=== PATIENT | female | born 1985 | race Two or more races ===

== ENCOUNTER → 2017-05-08 | Outpatient (REF) | payer OTHER | LOC: M SFHCLERA 17:58 | PROVIDERS: ATTEND Nurse Practitioner Family | DX: J02.9 Acute pharyngitis, unspecified (principal) ==

== ENCOUNTER → 2018-03-13 | Outpatient (REF) | payer OTHER | LOC: M SFHCLERA 20:08 | DX: N89.8 Other specified noninflammatory disorders of vagina (principal) | CPT/HCPCS: 87086 ==

== ENCOUNTER → 2018-05-06 | Outpatient (REF) | payer OTHER ==
[2018-05-06 18:04] LABS: CHLAMYDIA DNA AMPLIFICATION NEGATIVE (NEGATIVE); GC DNA AMPLIFICATION NEGATIVE (NEGATIVE)
== END ==
LOC: M SFHCLERA 10:34
DX: N89.8 Other specified noninflammatory disorders of vagina (principal)
CPT/HCPCS: 87186

== ENCOUNTER → 2018-07-26 | Outpatient (REF) | payer OTHER | LOC: M SFHCLERA 09:28 | DX: R10.9 Unspecified abdominal pain (principal) ==

== ENCOUNTER → 2018-08-20 | Outpatient (REF) | payer OTHER | LOC: M SFHCLERA 19:03 | PROVIDERS: ATTEND Nurse Practitioner Family | DX: R35.0 Frequency of micturition (principal); N89.8 Other specified noninflammatory disorders of vagina | CPT/HCPCS: 81002; 81025; 87070; 87086; G0463 ==

== ENCOUNTER → 2018-09-22 | Outpatient (REF) | payer OTHER | LOC: M SFHCLERA 09:34 | PROVIDERS: ATTEND Nurse Practitioner Family | DX: N89.8 Other specified noninflammatory disorders of vagina (principal) ==

== ENCOUNTER → 2018-10-18 | Outpatient (REF) | payer OTHER | LOC: M SFHCLERA 16:52 | PROVIDERS: ATTEND Nurse Practitioner Family | DX: N89.8 Other specified noninflammatory disorders of vagina (principal) ==

== ENCOUNTER 2018-11-05 14:24 | Emergency (ER) | payer OTHER ==
[~2018-11-05] VITALS: Ht 154.9 cm; Wt 61.4 kg
[2018-11-05] MEDS ORDERED: ORTH1TAB16 PO (14:36)
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
[2018-11-05] MEDS ORDERED: ROBA500T PO (17:05)
[2018-11-05] MEDS ORDERED: ONDA4TAB6 PO (17:05)
[2018-11-05] MEDS ORDERED: IBUP-1022 PO (17:05)
[2018-11-05 17:09] VITALS: BP 130/78
--- NOTE | 2018-11-05 17:09 | REP ---
MRA Brain without contrast History: Possible aneurysm 3-D [id number] MR angiography was performed at the level of the [place]. There is no aneurysm, arteriovenous malformation or atherosclerotic lesion. Major intracranial vessels are patent. The left vertebral artery is dominant. Impression: Normal MRA brain. Electronically Signed by Ke Anderson MD 11/05/2018 05:01 P
== END 2018-11-05 17:15 | disposition home or self-care (01) ==
LOC: M ED 14:24
DX: S16.1XXA Strain of muscle, fascia and tendon at neck level, initial encounter (principal); S29.012A Strain of muscle and tendon of back wall of thorax, initial encounter; F10.10 Alcohol abuse, uncomplicated; V47.5XXA Car driver injured in collision with fixed or stationary object in traffic accident, initial encounter; Y92.410 Unspecified street and highway as the place of occurrence of the external cause; Z88.8 Allergy status to other drugs, medicaments and biological substances; Z88.6 Allergy status to analgesic agent; Z79.3 Long term (current) use of hormonal contraceptives

== ENCOUNTER → 2018-12-20 | Outpatient (REF) | payer OTHER ==
[~2018-12-20] MED LIST: IBUP-1022 PO; ONDA4TAB6 PO; ORTH1TAB16 PO; ROBA500T PO
[2018-12-20 22:27] LABS: CHLAMYDIA DNA AMPLIFICATION NEGATIVE (NEGATIVE); GC DNA AMPLIFICATION NEGATIVE (NEGATIVE)
== END ==
LOC: M SFHCLERA 18:41
PROVIDERS: ATTEND Physician Assistant
DX: N89.8 Other specified noninflammatory disorders of vagina (principal)

== ENCOUNTER → 2019-03-26 | Outpatient (REF) | payer OTHER ==
[~2019-03-26] MED LIST changes: -ORTH1TAB16 PO; +ORTH1TAB8 PO
== END ==
LOC: M SFHCLERA 10:34
PROVIDERS: ATTEND Nurse Practitioner Family
DX: J02.9 Acute pharyngitis, unspecified (principal)